=== PATIENT | female | born 1955 | race Caucasian/White ===

== ENCOUNTER 2020-08-07 19:31 | Inpatient (IN) | payer MEDICAID ==
[~2020-08-07] VITALS: Ht 170.2 cm; Wt 66.0 kg
[2020-08-07] MEDS ORDERED: PIPERACILLIN/TAZ 3.375G PREMIX 50 ML IV ONE (19:45)
[2020-08-07] MEDS ORDERED: NOREPINEPHRINE 8MG/250ML PMX 250 ML IV ONE (19:45)
[2020-08-07] MEDS ORDERED: AZITHROMYCIN 500 MG in DEXT 5% WATER 250 ML IV ONE (19:45)
[2020-08-07] MEDS ORDERED: HYDROCORTISONE SOD SUCCINATE 100 MG/2 ML VIAL IV ONE (19:45)
[2020-08-07] MEDS ORDERED: VANCOMYCIN 1 G PREMIX 200 ML IV ONE (19:45)
[2020-08-07] MEDS ORDERED: SODIUM CHLORIDE 0.9% 1000ML BAG (SEPSIS BOLUS) IV ONE (19:45)
[2020-08-07 20:44] LABS: CHLORIDE 110 mEq/L (98-107)
[2020-08-07 20:45] LABS: INR 1.5; PROTHROMBIN TIME 15.6 sec (9.6-11.0)
[2020-08-07] MEDS: NOREPINEPHRINE 8 MG in DEXT 5% WATER 242 ML IV PRN (20:59)
[2020-08-07 21:21] LABS: CLARITY URINE CLEAR (CLEAR); COLOR URINE DARK YELLOW (YELLOW); KETONES URINE NEGATIVE (NEGATIVE); LEUKOCYTE ESTERASE URINE NEGATIVE (NEGATIVE); NITRITE URINE NEGATIVE (NEGATIVE); OCCULT BLOOD URINE NEGATIVE (NEGATIVE); PH URINE 5.5 (4.5-8.0); PROTEIN URINE NEGATIVE (NEGATIVE); SPECIFIC GRAVITY URINE 1.014 (1.005-1.030)
[2020-08-07 21:40] LABS: HEMATOCRIT. 21.7 % (36.0-48.0); HEMOGLOBIN. 7.2 g/dL (12.0-16.0); MEAN CORPUSCULAR HEMOGLOBIN 35.2 pg (28.0-32.0); MEAN CORPUSCULAR VOLUME 106.1 fL (81.0-99.0); MEAN PLATELET VOLUME 11.2 fl (7.4-10.4); RED BLOOD CELL COUNT 2.05 mill/uL (4.2-5.4); RED CELL DISTRIBUTION WIDTH 15.8 % (11.6-14.6)
[2020-08-07 21:47] LABS: PLATELET 5 x1000/uL (130-400)
[2020-08-07] MEDS ORDERED: MORPHINE SULFATE 4 MG/ML CPJ (NOT FOR IM USE) IV ONE (22:45)
[2020-08-07 23:07] LABS: PLATELET ESTIMATE MARKEDLY DECREASED
[2020-08-08] MEDS ORDERED: DIPHENHYDRAMINE 50MG/ML VIAL IV ONE (00:30)
[2020-08-08] MEDS ORDERED: MORPHINE SULFATE 4 MG/ML CPJ (NOT FOR IM USE) IV ONE (01:00)
[2020-08-08] MEDS ORDERED: FENTANYL CITRATE/PF 50MCG/ML 2ML VIAL IV ONE (03:15)
[2020-08-08] MEDS: NOREPINEPHRINE 8 MG in DEXT 5% WATER 242 ML IV PRN (03:15)
[2020-08-08] MEDS ORDERED: NOREPINEPHRINE 32 MG in DEXT 5% WATER 218 ML IV SCH (04:00)
[2020-08-08] MEDS ORDERED: NOREPINEPHRINE 8 MG in DEXT 5% WATER 242 ML IV SCH (04:00)
[2020-08-08] MEDS ORDERED: MIDAZOLAM HCL 100 MG in DEXT 5% WATER 80 ML IV ONE (05:00)
[2020-08-08] MEDS ORDERED: ETOMIDATE 2MG/ML 10ML VIAL IV ONE ×2 (05:00)
[2020-08-08] MEDS ORDERED: VECURONIUM BROMIDE 10 MG/VIAL IV ONE ×2 (05:00)
[2020-08-08] MEDS ORDERED: SODIUM CHLORIDE 0.9% 1,000 ML IV ONE ×3 (05:15→09:30)
[2020-08-08 07:48] LABS: BG BASE EXCESS -25.2 mmol/L (-2.0-2.0); BG CARBOXYHEMOGLOBIN 0.3 % (0.5-1.5); BG DEOXYHEMOGLOBIN 9.3 % (0.0-5.0); BG FRACTION INSPIRED OXYGEN 50; BG HCO3 ACT 6.1 mmol/L (22.0-26.0); BG METHEMOGLOBIN 0.2 % (0.0-1.5); BG OXYGEN SATURATION 90.7 % (92.0-98.5); BG OXYHEMOGLOBIN 90.2 % (94.0-97.0); BG PCO2 33.8 mmHg (35.0-45.0); BG PH 6.876 (7.350-7.450); BG SAMPLE SITE LEFT FEMORAL; BG TOTAL HEMOGLOBIN 6.8 g/dL (12.0-18.0); BG TOTAL RESPIRATORY RATE 16 b/min; BG VENT MODE VENT - AC
[2020-08-08] MEDS ORDERED: SODIUM BICARBONATE 8.4% 1 MEQ/ML 50ML SYR IV ONE (08:30)
[2020-08-08] MEDS: SODIUM BICARBONATE 150 MEQ in DEXTROSE 5% WATER 1,000 ML IV SCH ×3 (08:43→23:58)
[2020-08-08] MEDS ORDERED: PHENYLEPHRINE 100 MG in DEXT 5% WATER 240 ML IV PRN (09:15)
[2020-08-08] MEDS ORDERED: ALBUMIN HUMAN 25GM/100ML (25%) IV NR (09:30)
[2020-08-08] MEDS: PANTOPRAZOLE SODIUM 40 MG/VIAL IV SCH (10:00)
[2020-08-08] MEDS ORDERED: VASOPRESSIN 20 UNIT in SODIUM CHLORIDE 0.9% 99 ML IV PRN (10:30)
[2020-08-08] MEDS ORDERED: MICAFUNGIN 150 MG in SODIUM CHLORIDE 0.9% 100 ML IV SCH (11:00)
[2020-08-08] MEDS: MEROPENEM 1,000 MG in SODIUM CHLORIDE 0.9% 100 ML IV SCH ×2 (11:19→22:31)
[2020-08-08] MEDS: IPRATROPIUM BROMIDE (0.02%) 0.5MG/2.5ML NEB HHN SCH ×2 (12:00→20:26)
[2020-08-08 12:15] LABS: BG BASE EXCESS -19.8 mmol/L (-2.0-2.0); BG CARBOXYHEMOGLOBIN 0.1 % (0.5-1.5); BG DEOXYHEMOGLOBIN 6.5 % (0.0-5.0); BG HCO3 ACT 8.8 mmol/L (22.0-26.0); BG METHEMOGLOBIN 0.7 % (0.0-1.5); BG OXYGEN SATURATION 93.4 % (92.0-98.5); BG OXYHEMOGLOBIN 92.7 % (94.0-97.0); BG PCO2 31.2 mmHg (35.0-45.0); BG PO2 84.5 mmHg (75.0-100.0); BG SAMPLE SITE LEFT FEMORAL; BG TOTAL HEMOGLOBIN 7.8 g/dL (12.0-18.0); BG VENT MODE VENT - AC
[2020-08-08] MEDS ORDERED: DEXTROSE 50% WATER 50ML SYRINGE IV NR (12:30)
[2020-08-08] MEDS ORDERED: NOREPINEPHRINE 32 MG in DEXTROSE 5% WATER 250 ML IV PRN (13:00)
[2020-08-08] MEDS: DEXT 5%/0.45% NACL 1000ML 1,000 ML IV SCH (14:59)
[2020-08-08] MEDS: BLOOD SUGAR DIAGNOSTIC STRIP TEST SCH ×5 (16:46→23:57)
[2020-08-08] MEDS: DEXTROSE 50% WATER 50ML SYRINGE IV PRN ×3 (16:49→23:08)
[2020-08-08 16:53] LABS: CHLORIDE 112 mEq/L (98-107)
[2020-08-08 16:56] LABS: HEMATOCRIT. 21.8 % (36.0-48.0); HEMOGLOBIN. 7.2 g/dL (12.0-16.0); MEAN CORPUSCULAR HEMOGLOBIN 33.8 pg (28.0-32.0); MEAN CORPUSCULAR VOLUME 102.8 fL (81.0-99.0); MEAN PLATELET VOLUME 9.5 fl (7.4-10.4); RED BLOOD CELL COUNT 2.12 mill/uL (4.2-5.4); RED CELL DISTRIBUTION WIDTH 19.9 % (11.6-14.6)
[2020-08-08] MEDS ORDERED: INSULIN LISPRO 100 UNITS/ML SUBCUT SCH (17:00)
[2020-08-08 17:01] LABS: PLATELET 4 x1000/uL (130-400)
[2020-08-08] MEDS ORDERED: SODIUM BICARBONATE 8.4% 1 MEQ/ML 50ML SYR IV NR (19:00)
[2020-08-08 21:29] LABS: PLATELET ESTIMATE MARKEDLY DECREASED
[2020-08-09] MEDS: IPRATROPIUM BROMIDE (0.02%) 0.5MG/2.5ML NEB HHN SCH ×2 (01:44→09:51)
[2020-08-09] MEDS: BLOOD SUGAR DIAGNOSTIC STRIP TEST SCH ×5 (02:16→10:36)
[2020-08-09] MEDS: DEXTROSE 50% WATER 50ML SYRINGE IV PRN (04:41)
[2020-08-09] MEDS: DEXT 5%/0.45% NACL 1000ML 1,000 ML IV SCH (04:42)
[2020-08-09 06:12] LABS: MEAN CORPUSCULAR HEMOGLOBIN 34.1 pg (28.0-32.0); MEAN CORPUSCULAR VOLUME 113.6 fL (81.0-99.0); MEAN PLATELET VOLUME 11.8 fl (7.4-10.4); RED CELL DISTRIBUTION WIDTH 20.8 % (11.6-14.6)
[2020-08-09 06:19] LABS: CHLORIDE 105 mEq/L (98-107)
[2020-08-09 06:27] LABS: HEMOGLOBIN. 4.8 g/dL (12.0-16.0)
[2020-08-09 06:28] LABS: HEMATOCRIT. 15.9 % (36.0-48.0); PLATELET 2 x1000/uL (130-400)
[2020-08-09 06:42] LABS: PROTHROMBIN TIME 44.4 sec (9.6-11.0)
[2020-08-09 07:46] LABS: INR 4.6
[2020-08-09] MEDS: SODIUM BICARBONATE 150 MEQ in DEXTROSE 5% WATER 1,000 ML IV SCH (09:21)
[2020-08-09 10:16] VITALS: BP 138/48
[2020-08-09] MEDS: MEROPENEM 1,000 MG in SODIUM CHLORIDE 0.9% 100 ML IV SCH (10:36)
[2020-08-09] MEDS: PANTOPRAZOLE SODIUM 40 MG/VIAL IV SCH (10:42)
[2020-08-09 15:54] LABS: PLATELET ESTIMATE MARKEDLY DECREASED
== END 2020-08-09 11:46 | disposition expired | DRG 720 ==
LOC: ER 19:31 → MICUSO 21:20 → EDBEDREQSVC 21:35 → EDBEDREQ 21:35 → EDBEDREQTM 21:35 → CANBEDREQ 08-09 19:02
PROVIDERS: ADMIT Internal Medicine; ATTEND Internal Medicine
PROC: 02HV33Z Insertion of Infusion Device into Superior Vena Cava, Percutaneous Approach (ICD-10-PCS; 2020-08-07)
PROC: B548ZZA Ultrasonography of Superior Vena Cava, Guidance (ICD-10-PCS; 2020-08-07)
PROC: 5A1935Z Respiratory Ventilation, Less than 24 Consecutive Hours (ICD-10-PCS; principal; 2020-08-08)
PROC: 30233R1 Transfusion of Nonautologous Platelets into Peripheral Vein, Percutaneous Approach (ICD-10-PCS; 2020-08-08)
PROC: 30233N1 Transfusion of Nonautologous Red Blood Cells into Peripheral Vein, Percutaneous Approach (ICD-10-PCS; 2020-08-08)
PROC: 0BH17EZ Insertion of Endotracheal Airway into Trachea, Via Natural or Artificial Opening (ICD-10-PCS; 2020-08-08)
DX: A41.59 Other Gram-negative sepsis (principal); R65.21 Severe sepsis with septic shock; J96.00 Acute respiratory failure, unspecified whether with hypoxia or hypercapnia; N17.0 Acute kidney failure with tubular necrosis; G93.40 Encephalopathy, unspecified; E83.52 Hypercalcemia; E43 Unspecified severe protein-calorie malnutrition; D68.9 Coagulation defect, unspecified; D61.818 Other pancytopenia; N18.30 Chronic kidney disease, stage 3 unspecified; R18.8 Other ascites; J44.9 Chronic obstructive pulmonary disease, unspecified; F17.210 Nicotine dependence, cigarettes, uncomplicated; E87.2 Acidosis; C78.7 Secondary malignant neoplasm of liver and intrahepatic bile duct; Z66 Do not resuscitate; J18.9 Pneumonia, unspecified organism; Z20.828 Contact with and (suspected) exposure to other viral communicable diseases; J90 Pleural effusion, not elsewhere classified; I12.9 Hypertensive chronic kidney disease with stage 1 through stage 4 chronic kidney disease, or unspecified chronic kidney disease; E11.22 Type 2 diabetes mellitus with diabetic chronic kidney disease; M85.80 Other specified disorders of bone density and structure, unspecified site; Z85.3 Personal history of malignant neoplasm of breast; Z90.12 Acquired absence of left breast and nipple; Z68.22 Body mass index [BMI] 22.0-22.9, adult; Z91.19 Patient's noncompliance with other medical treatment and regimen; C50.912 Malignant neoplasm of unspecified site of left female breast
CPT/HCPCS: 36415; 36600; 71045; 76700; 80053; 81003; 82375; 82805; 82962; 83036; 83605; 84145; 84484; 85025; 85362; 85384; 86850; 86900; 86920; 87077; 87186; 87635; 93005; 93971; 94003; 94640; 96365; 99291; C9113; J0456; J1200; J1720; J2185; J2248; J2250; J2270; J2370; J2543; J3010; J3370; J3490; J7030; J7050; J7060; J7070; P9016; P9034; P9047